=== PATIENT | female | born 1955 | race Caucasian/White ===

== ENCOUNTER 2017-05-09 20:48 | Observation (INO) | payer OTHER ==
[~2017-05-09] VITALS: Ht 157.5 cm; Wt 114.5 kg
[~2017-05-09 20:48] MED LIST: ALBU.083IS IH; ALBU90OI INH; ALBU90OI6 INH; ALPR.5; ALPR1 PO; AMOCLA875 PO; ASPI325 PO; AZIT250 PO; Abilify5 MG PO; Accuneb1.25 MG/3 INH; Bactrim 400-801 EACH PO; Bactrim Ds Tab1 EACH PO; Benadryl 50 mg50 MG PO; CEPH500 PO; CIPR500 PO; CONEST1.25; CYCL10 PO; Crutch1 EACH MISC; DIPATR PO; DULO30 PO; ERGO50000 PO; ESOM20; ESTR1; FAMO40 PO; FLUSAL1005 INH; Flexeril 10 mg10 MG PO; GLIP5 PO; HYDACE5 PO; HYDACE5325 PO; HYDMOR2; HYDR1TAB94 PO; IBUP800 PO; LISI5 PO; LORA2 PO; METF500 PO; METF500C PO; METO25ER PO; METO50 PO; METPRE4DP PO; MIRT15 PO; MIRT15ST MM; NICO21TP; NITR.3SL; NITR.4SL SL; Nitrostat0.4 MG SL; Norco 5-325 Ta1 EACH PO; Norco 7.5-3251 EACH PO; OMEP20ER; OMEP40CA12 PO; ONDA8 PO; OXYACE5T PO; PRAV20 PO; PRED20 PO; PROM25; PROM25 PO; Percocet 5-3251 EACH PO; Prednisone20 MG PO; RANI150; RANI150 PO; SERT100; SERT100 PO; SULTRIDS PO; TAMS.4ER PO; TRAZ100 PO; TRIA80TC TOP; VITAMIN D-32000 UNIT PO; ZOLP5 PO; Zofran Odt8 MG SL; Zofran8 MG PO; Zoloft PO; [UNRECOGNIZED DRUG - OTHER]
[2017-05-09 21:10] LABS: BASOPHILS ABSOLUTE AUTO 0.04 K/mm3 (0.00-0.23); BASOPHILS PERCENT AUTO 0 % (0-2); EOSINOPHILS ABSOLUTE AUTO 0.19 K/mm3 (0.00-0.68); EOSINOPHILS PERCENT AUTO 2 % (0-6); Hemoglobin 12.6 g/dL (11.5-16.0); IMMATURE GRAN ABSOLUTE AUTO 0.02 K/mm3 (0.00-0.10); IMMATURE GRAN PERCENT AUTO 0 % (0-1); LYMPHOCYTES ABSOLUTE AUTO 4.13 K/mm3 (0.84-5.20); LYMPHOCYTES PERCENT AUTO 41 % (21-46); MONOCYTES ABSOLUTE AUTO 0.71 K/mm3 (0.16-1.47); MONOCYTES PERCENT AUTO 7 % (4-13); Mean Corpuscular HGB 27.4 pg (26.0-34.0); Mean Corpuscular HGB Conc 33.2 g/dL (31.5-36.5); Mean Corpuscular Volume 83 fL (80-100); Mean Platelet Volume 11.7 fL (9.1-12.4); NEUTROPHILS PERCENT AUTO 49 % (41-73); Platelet Count 182 K/mm3 (150-400); RDW Coefficient Variation 13.3 % (11.7-14.2); RDW Standard Deviation 39.8 fL (35.1-46.3); White Blood Cell Count 9.99 K/mm3 (4.00-11.30)
[2017-05-09 21:32] LABS: Alanine Aminotransfer (ALT/SGP 23 U/L (12-78); Albumin, Blood 3.4 g/dL (3.4-5.0); Albumin/Globulin Ratio 1.1 (0.8-1.8); Alk Phos 98 U/L (50-136); Anion Gap 7 mmol/L (6-16); Aspartate Aminotrans (AST/SGOT 10 U/L (12-37); Bilirubin, Total 0.2 mg/dL (0.1-1.0); Blood Urea Nitrogen 10 mg/dL (8-24); Bun/Creatinine Ratio 15.4 (12.0-20.0); CO2, Blood 25 mmol/L (21-32); Calcium, Blood 8.5 mg/dL (8.5-10.1); Chloride, Blood 108 mmol/L (98-108); Creatinine, Blood 0.65 mg/dL (0.40-1.00); Globulin, Blood 3.2 g/dL (2.2-4.0); Glomerular Filtration Rate >60 (60-); Glucose, Blood 249 mg/dL (70-99); Potassium, Blood 4.1 mmol/L (3.5-5.5); Sodium, Blood 140 mmol/L (136-145); Total Protein, Blood 6.6 g/dL (6.4-8.2); Troponin I <0.015 ng/mL (0.000-0.040)
[2017-05-10] MEDS ORDERED: ARIP15 PO (00:26)
[2017-07-15] MEDS ORDERED: Fish Oil 10001000 MG PO (19:26)
[2017-07-15] MEDS ORDERED: WOMEN'S DAILY1 EAC1 PO (19:26)
[2017-12-27] MEDS ORDERED: Zofran Odt4 MG PO (23:42)
== END 2017-05-11 14:00 | disposition home or self-care (01) ==
LOC: ER 20:48 → PCU 20:49 → MEDS 20:49 → PCU 23:48
PROVIDERS: Emergency Medicine
DX: R07.9 Chest pain, unspecified (principal); I25.10 Atherosclerotic heart disease of native coronary artery without angina pectoris; J44.9 Chronic obstructive pulmonary disease, unspecified; E11.9 Type 2 diabetes mellitus without complications; I10 Essential (primary) hypertension; E66.01 Morbid (severe) obesity due to excess calories; I25.2 Old myocardial infarction; F41.9 Anxiety disorder, unspecified; F32.9 Major depressive disorder, single episode, unspecified; Z90.49 Acquired absence of other specified parts of digestive tract; F17.210 Nicotine dependence, cigarettes, uncomplicated; Z79.82 Long term (current) use of aspirin; Z79.84 Long term (current) use of oral hypoglycemic drugs; Z79.899 Other long term (current) drug therapy; Z98.1 Arthrodesis status; Z68.39 Body mass index [BMI] 39.0-39.9, adult
CPT/HCPCS: 36415; 71045; 78452; 80053; 82947; 83690; 84484; 85025; 93005; 93010; 93017; 94760; 96372; 96374; 96375; 96376; 97162; 97530; 99285; A9500; G0378; G8978; G8979; G8980; J0280; J0360; J0780; J1170; J1200; J1650; J2270; J2405; J2765; J2785; J7040

== ENCOUNTER 2017-08-17 07:45 | Day surgery (SDC) | payer OTHER ==
[~2017-08-17] VITALS: Ht 157.5 cm; Wt 114.8 kg
[~2017-08-17 07:45] MED LIST changes: +ARIP15 PO; +Fish Oil 10001000 MG; +WOMEN'S DAILY1 EAC1
== END 2017-08-17 12:00 | disposition home or self-care (01) ==
LOC: ORSCMMR 07:45 → ORD 09:00 → ORSCMMR 09:00
PROVIDERS: Internal Medicine Gastroenterology
PROC: 0DBN8ZX Excision of Sigmoid Colon, Via Natural or Artificial Opening Endoscopic, Diagnostic (ICD-10-PCS; principal; 2017-08-17 09:00)
PROC: 0DBL8ZX Excision of Transverse Colon, Via Natural or Artificial Opening Endoscopic, Diagnostic (ICD-10-PCS; principal; 2017-08-17 09:00)
PROC: 0DBK8ZX Excision of Ascending Colon, Via Natural or Artificial Opening Endoscopic, Diagnostic (ICD-10-PCS; principal; 2017-08-17 09:00)
DX: K62.5 Hemorrhage of anus and rectum (principal); D12.2 Benign neoplasm of ascending colon; K63.5 Polyp of colon; I10 Essential (primary) hypertension; E11.9 Type 2 diabetes mellitus without complications; F17.210 Nicotine dependence, cigarettes, uncomplicated; F32.9 Major depressive disorder, single episode, unspecified; E66.9 Obesity, unspecified; Z68.42 Body mass index [BMI] 45.0-49.9, adult; Z79.84 Long term (current) use of oral hypoglycemic drugs; Z79.82 Long term (current) use of aspirin; Z79.899 Other long term (current) drug therapy
CPT/HCPCS: 82947; 88305; J2250; J3010; J7030

== ENCOUNTER 2017-09-18 17:12 | Emergency (ER) | payer OTHER ==
[~2017-09-18] VITALS: Ht 160 cm; Wt 114.3 kg
[2017-09-18 17:53] LABS: BASOPHILS ABSOLUTE AUTO 0.05 K/mm3 (0.00-0.23); BASOPHILS PERCENT AUTO 0 % (0-2); EOSINOPHILS ABSOLUTE AUTO 0.13 K/mm3 (0.00-0.68); EOSINOPHILS PERCENT AUTO 1 % (0-6); Hematocrit 39.3 % (33.0-51.0); Hemoglobin 13.2 g/dL (11.5-16.0); IMMATURE GRAN ABSOLUTE AUTO 0.04 K/mm3 (0.00-0.10); IMMATURE GRAN PERCENT AUTO 0 % (0-1); LYMPHOCYTES ABSOLUTE AUTO 3.27 K/mm3 (0.84-5.20); LYMPHOCYTES PERCENT AUTO 29 % (21-46); MONOCYTES PERCENT AUTO 6 % (4-13); Mean Corpuscular HGB Conc 33.6 g/dL (31.5-36.5); Mean Corpuscular Volume 83 fL (80-100); Mean Platelet Volume 11.5 fL (9.1-12.4); NEUTROPHILS ABSOLUTE AUTO 7.28 K/mm3 (1.96-9.15); NEUTROPHILS PERCENT AUTO 64 % (41-73); Platelet Count 195 K/mm3 (150-400); RDW Coefficient Variation 13.7 % (11.7-14.2); RDW Standard Deviation 41.9 fL (35.1-46.3); Red Blood Cell Count 4.72 M/mm3 (3.80-5.20); White Blood Cell Count 11.47 K/mm3 (4.00-11.30)
[2017-09-18 18:11] LABS: Troponin I <0.015 ng/mL (0.000-0.040)
[2017-09-18 18:34] LABS: Anion Gap 10 mmol/L (6-16); Blood Urea Nitrogen 9 mg/dL (8-24); Bun/Creatinine Ratio 13.8 (12.0-20.0); CO2, Blood 25 mmol/L (21-32); Calcium, Blood 8.8 mg/dL (8.5-10.1); Chloride, Blood 106 mmol/L (98-108); Creatinine, Blood 0.65 mg/dL (0.40-1.00); Glomerular Filtration Rate >60 (60-); Glucose, Blood 169 mg/dL (70-99); Potassium, Blood 3.7 mmol/L (3.5-5.5); Sodium, Blood 141 mmol/L (136-145)
[2017-09-18] MEDS ORDERED: LORA2 PO (18:42)
== END 2017-09-18 18:46 | disposition home or self-care (01) ==
LOC: ER 17:12
PROVIDERS: Emergency Medicine
DX: R07.9 Chest pain, unspecified (principal); I25.10 Atherosclerotic heart disease of native coronary artery without angina pectoris; E11.9 Type 2 diabetes mellitus without complications; I10 Essential (primary) hypertension; F32.9 Major depressive disorder, single episode, unspecified; F41.9 Anxiety disorder, unspecified; Z79.899 Other long term (current) drug therapy; Z79.82 Long term (current) use of aspirin; Z79.84 Long term (current) use of oral hypoglycemic drugs
CPT/HCPCS: 36415; 71045; 80048; 84484; 85025; 93005; 93010; 96374; 96375; 99285-25; J2060; J2405

== ENCOUNTER 2020-05-09 19:25 | Emergency (ER) | payer OTHER ==
[~2020-05-09] VITALS: Ht 157.5 cm; Wt 113.4 kg
[~2020-05-09 19:25] MED LIST changes: -Fish Oil 10001000 MG; +Fish Oil 10001000 MG PO; -WOMEN'S DAILY1 EAC1; +WOMEN'S DAILY1 EAC1 PO; +Zofran Odt4 MG PO
[2020-05-09 20:47] LABS: BASOPHILS ABSOLUTE AUTO 0.04 K/mm3 (0.00-0.23); BASOPHILS PERCENT AUTO 0 % (0-2); EOSINOPHILS ABSOLUTE AUTO 0.14 K/mm3 (0.00-0.68); EOSINOPHILS PERCENT AUTO 1 % (0-6); Hematocrit 43.6 % (33.0-51.0); Hemoglobin 14.7 g/dL (11.5-16.0); IMMATURE GRAN ABSOLUTE AUTO 0.02 K/mm3 (0.00-0.10); IMMATURE GRAN PERCENT AUTO 0 % (0-1); LYMPHOCYTES ABSOLUTE AUTO 4.08 K/mm3 (0.84-5.20); LYMPHOCYTES PERCENT AUTO 38 % (21-46); MONOCYTES ABSOLUTE AUTO 0.64 K/mm3 (0.16-1.47); MONOCYTES PERCENT AUTO 6 % (4-13); Mean Corpuscular HGB 27.1 pg (26.0-34.0); Mean Corpuscular HGB Conc 33.7 g/dL (31.5-36.5); Mean Corpuscular Volume 80 fL (80-100); Mean Platelet Volume 10.5 fL (9.1-12.4); NEUTROPHILS ABSOLUTE AUTO 5.81 K/mm3 (1.96-9.15); NEUTROPHILS PERCENT AUTO 54 % (41-73); Platelet Count 216 K/mm3 (150-400); RDW Coefficient Variation 14.3 % (11.7-14.2); RDW Standard Deviation 41.2 fL (35.1-46.3); Red Blood Cell Count 5.43 M/mm3 (3.80-5.20); White Blood Cell Count 10.73 K/mm3 (4.00-11.30)
[2020-05-09 21:06] LABS: Alanine Aminotransfer (ALT/SGP 19 U/L (12-78); Albumin, Blood 3.5 g/dL (3.4-5.0); Albumin/Globulin Ratio 1.1 (0.8-1.8); Alk Phos 97 U/L (50-136); Anion Gap 5 mmol/L (6-16); Aspartate Aminotrans (AST/SGOT 13 U/L (12-37); Bilirubin, Total 0.5 mg/dL (0.1-1.0); Blood Urea Nitrogen 9 mg/dL (8-24); Bun/Creatinine Ratio 12.8 (12.0-20.0); CO2, Blood 30 mmol/L (21-32); Calcium, Blood 9.1 mg/dL (8.5-10.1); Chloride, Blood 106 mmol/L (98-108); Globulin, Blood 3.3 g/dL (2.2-4.0); Glomerular Filtration Rate >60 (60-); Glucose, Blood 191 mg/dL (70-99); Potassium, Blood 3.9 mmol/L (3.5-5.5); Sodium, Blood 141 mmol/L (136-145); Total Protein, Blood 6.8 g/dL (6.4-8.2)
[2020-05-09] MEDS ORDERED: ANORO ELLIPTA1 EACH (23:06)
[2020-05-09] MEDS ORDERED: BASAGLAR K100 UNIT/8 (23:06)
[2020-05-09] MEDS ORDERED: GABA300 (23:07)
[2020-05-09] MEDS ORDERED: PRAZ1 (23:07)
[2020-05-09] MEDS ORDERED: PRAV20 (23:07)
[2020-05-09] MEDS ORDERED: ALBU90OI (23:08)
[2020-05-09] MEDS ORDERED: ONDA4ODT (23:08)
[2020-05-09] MEDS ORDERED: ALPR1 (23:09)
[2020-05-10 00:19] LABS: Source, Urine Clean Catch
[2020-05-10 00:24] LABS: Bilirubin, Urine Neg (Neg); Blood, Urine 1+ (Neg); Glucose Qualitative, Urine Neg (Neg); Ketones, Urine 1+ (Neg); Leukocyte Esterase, Urine 1+ (Neg); Nitrite, Urine Neg (Neg); Protein, Urine 1+ (Neg); Urobilinogen, Urine 1+ (Normal)
[2020-05-10 00:27] LABS: Color, Urine Yellow (P-Yellow)
[2020-05-10 00:41] LABS: Appearance, Urine Hazy (Clear); Bacteria Many /hpf; Mucus Light (0-Heavy); Red Blood Cells, Urine 0-2 /hpf (0-2); Squamous Epithelial Cells Many /hpf (Few)
== END 2020-05-10 00:56 | disposition left against medical advice (07) ==
LOC: ER 19:25
PROVIDERS: Emergency Medicine
DX: R10.9 Unspecified abdominal pain (principal); I10 Essential (primary) hypertension; I25.2 Old myocardial infarction; E11.9 Type 2 diabetes mellitus without complications; I25.10 Atherosclerotic heart disease of native coronary artery without angina pectoris; E78.5 Hyperlipidemia, unspecified; Z91.09 Other allergy status, other than to drugs and biological substances; Z88.8 Allergy status to other drugs, medicaments and biological substances; Z79.4 Long term (current) use of insulin; Z79.899 Other long term (current) drug therapy; Z87.442 Personal history of urinary calculi; Z87.891 Personal history of nicotine dependence
CPT/HCPCS: 36415; 80053; 81001; 83690; 85025; 87086; 93005; 93010; 99284-25

== ENCOUNTER 2020-08-24 21:15 | Emergency (ER) | payer OTHER ==
[~2020-08-24] VITALS: Ht 157.5 cm; Wt 113.4 kg
[~2020-08-24 21:15] MED LIST changes: +ALBU90OI; +ALPR1; +ANORO ELLIPTA1 EACH; +BASAGLAR K100 UNIT/8; +GABA300; +ONDA4ODT; +PRAV20; +PRAZ1
[2020-08-24 21:41] LABS: BASOPHILS ABSOLUTE AUTO 0.04 K/mm3 (0.00-0.23); BASOPHILS PERCENT AUTO 0 % (0-2); EOSINOPHILS ABSOLUTE AUTO 0.11 K/mm3 (0.00-0.68); EOSINOPHILS PERCENT AUTO 1 % (0-6); Hematocrit 44.3 % (33.0-51.0); Hemoglobin 14.6 g/dL (11.5-16.0); IMMATURE GRAN ABSOLUTE AUTO 0.03 K/mm3 (0.00-0.10); IMMATURE GRAN PERCENT AUTO 0 % (0-1); LYMPHOCYTES ABSOLUTE AUTO 3.21 K/mm3 (0.84-5.20); LYMPHOCYTES PERCENT AUTO 30 % (21-46); MONOCYTES ABSOLUTE AUTO 0.68 K/mm3 (0.16-1.47); MONOCYTES PERCENT AUTO 6 % (4-13); Mean Corpuscular HGB 26.2 pg (26.0-34.0); Mean Corpuscular Volume 79 fL (80-100); Mean Platelet Volume 11.4 fL (9.1-12.4); NEUTROPHILS ABSOLUTE AUTO 6.65 K/mm3 (1.96-9.15); NEUTROPHILS PERCENT AUTO 62 % (41-73); Platelet Count 217 K/mm3 (150-400); RDW Coefficient Variation 14.6 % (11.7-14.2); RDW Standard Deviation 41.9 fL (35.1-46.3); Red Blood Cell Count 5.58 M/mm3 (3.80-5.20); White Blood Cell Count 10.72 K/mm3 (4.00-11.30)
[2020-08-24 22:02] LABS: Alanine Aminotransfer (ALT/SGP 20 U/L (12-78); Albumin, Blood 3.8 g/dL (3.4-5.0); Albumin/Globulin Ratio 1.1 (0.8-1.8); Alk Phos 92 U/L (50-136); Anion Gap 6 mmol/L (6-16); Aspartate Aminotrans (AST/SGOT 12 U/L (12-37); Bilirubin, Total 0.3 mg/dL (0.1-1.0); Blood Urea Nitrogen 8 mg/dL (8-24); Bun/Creatinine Ratio 13.3 (12.0-20.0); CO2, Blood 26 mmol/L (21-32); Calcium, Blood 8.8 mg/dL (8.5-10.1); Chloride, Blood 108 mmol/L (98-108); Globulin, Blood 3.4 g/dL (2.2-4.0); Glomerular Filtration Rate >60 (60-); Glucose, Blood 205 mg/dL (70-99); Potassium, Blood 3.9 mmol/L (3.5-5.5); Sodium, Blood 140 mmol/L (136-145); Total Protein, Blood 7.2 g/dL (6.4-8.2); Troponin I <0.015 ng/mL (0.000-0.040)
== END 2020-08-25 00:35 | disposition home or self-care (01) ==
LOC: ER 21:15
PROVIDERS: Physician Assistant
DX: R07.9 Chest pain, unspecified (principal); E78.5 Hyperlipidemia, unspecified; I10 Essential (primary) hypertension; I25.2 Old myocardial infarction; E11.40 Type 2 diabetes mellitus with diabetic neuropathy, unspecified; I25.10 Atherosclerotic heart disease of native coronary artery without angina pectoris; F17.210 Nicotine dependence, cigarettes, uncomplicated; Z79.4 Long term (current) use of insulin; Z91.09 Other allergy status, other than to drugs and biological substances; Z88.8 Allergy status to other drugs, medicaments and biological substances; Z79.899 Other long term (current) drug therapy
CPT/HCPCS: 36415; 71046; 80053; 83880; 84484; 85025; 93005; 93010; 99285-25; A9270

== ENCOUNTER 2020-12-10 20:31 | Inpatient (IN) | payer OTHER ==
[~2020-12-10] VITALS: Ht 157.5 cm; Wt 115.7 kg
[2020-12-10 20:51] LABS: BASOPHILS ABSOLUTE AUTO 0.04 K/mm3 (0.00-0.23); BASOPHILS PERCENT AUTO 1 % (0-2); EOSINOPHILS ABSOLUTE AUTO 0.12 K/mm3 (0.00-0.68); EOSINOPHILS PERCENT AUTO 1 % (0-6); Hematocrit 42.4 % (33.0-51.0); Hemoglobin 13.9 g/dL (11.5-16.0); IMMATURE GRAN ABSOLUTE AUTO 0.01 K/mm3 (0.00-0.10); IMMATURE GRAN PERCENT AUTO 0 % (0-1); LYMPHOCYTES ABSOLUTE AUTO 3.29 K/mm3 (0.84-5.20); LYMPHOCYTES PERCENT AUTO 38 % (21-46); MONOCYTES ABSOLUTE AUTO 0.53 K/mm3 (0.16-1.47); MONOCYTES PERCENT AUTO 6 % (4-13); Mean Corpuscular HGB 26.5 pg (26.0-34.0); Mean Corpuscular HGB Conc 32.8 g/dL (31.5-36.5); Mean Corpuscular Volume 81 fL (80-100); Mean Platelet Volume 11.3 fL (9.1-12.4); NEUTROPHILS ABSOLUTE AUTO 4.72 K/mm3 (1.96-9.15); NEUTROPHILS PERCENT AUTO 54 % (41-73); Platelet Count 205 K/mm3 (150-400); RDW Coefficient Variation 14.1 % (11.7-14.2); RDW Standard Deviation 41.3 fL (35.1-46.3); Red Blood Cell Count 5.25 M/mm3 (3.80-5.20); White Blood Cell Count 8.71 K/mm3 (4.00-11.30)
[2020-12-10 21:13] LABS: Alanine Aminotransfer (ALT/SGP 19 U/L (12-78); Albumin, Blood 3.5 g/dL (3.4-5.0); Alk Phos 101 U/L (50-136); Anion Gap 3 mmol/L (6-16); Aspartate Aminotrans (AST/SGOT 10 U/L (12-37); Bilirubin, Total 0.3 mg/dL (0.1-1.0); Blood Urea Nitrogen 7 mg/dL (8-24); Bun/Creatinine Ratio 9.1 (12.0-20.0); CO2, Blood 30 mmol/L (21-32); Calcium, Blood 8.7 mg/dL (8.5-10.1); Chloride, Blood 108 mmol/L (98-108); Creatinine, Blood 0.77 mg/dL (0.40-1.00); Globulin, Blood 3.6 g/dL (2.2-4.0); Glomerular Filtration Rate >60 (60-); Glucose, Blood 170 mg/dL (70-99); Potassium, Blood 4.1 mmol/L (3.5-5.5); Sodium, Blood 141 mmol/L (136-145); Total Protein, Blood 7.1 g/dL (6.4-8.2); Troponin I <0.015 ng/mL (0.000-0.040)
[2020-12-10 21:44] LABS: International Normalized Ratio 1.16; Prothrombin Time Results 12.1 Sec (9.7-11.5)
[2020-12-11 03:01] LABS: BASOPHILS ABSOLUTE AUTO 0.05 K/mm3 (0.00-0.23); BASOPHILS PERCENT AUTO 1 % (0-2); EOSINOPHILS ABSOLUTE AUTO 0.21 K/mm3 (0.00-0.68); EOSINOPHILS PERCENT AUTO 2 % (0-6); Hematocrit 41.2 % (33.0-51.0); Hemoglobin 13.5 g/dL (11.5-16.0); IMMATURE GRAN ABSOLUTE AUTO 0.03 K/mm3 (0.00-0.10); IMMATURE GRAN PERCENT AUTO 0 % (0-1); LYMPHOCYTES ABSOLUTE AUTO 4.46 K/mm3 (0.84-5.20); LYMPHOCYTES PERCENT AUTO 45 % (21-46); MONOCYTES ABSOLUTE AUTO 0.76 K/mm3 (0.16-1.47); MONOCYTES PERCENT AUTO 8 % (4-13); Mean Corpuscular HGB 26.6 pg (26.0-34.0); Mean Corpuscular HGB Conc 32.8 g/dL (31.5-36.5); Mean Corpuscular Volume 81 fL (80-100); Mean Platelet Volume 11.4 fL (9.1-12.4); NEUTROPHILS ABSOLUTE AUTO 4.46 K/mm3 (1.96-9.15); NEUTROPHILS PERCENT AUTO 45 % (41-73); Platelet Count 199 K/mm3 (150-400); RDW Coefficient Variation 14.4 % (11.7-14.2); RDW Standard Deviation 42.6 fL (35.1-46.3); Red Blood Cell Count 5.07 M/mm3 (3.80-5.20); White Blood Cell Count 9.97 K/mm3 (4.00-11.30)
[2020-12-11 03:21] LABS: CHOL/HDL RATIO 4.4; Cholesterol 173 mg/dL (50-200); HDL Cholesterol 39 mg/dL (>39); LDL/HDL RATIO 2.1; Low Density Lipoprotein Chol 82 mg/dL (0-110); Triglycerides 258 mg/dL (30-160); Very Low Density Lipoprot Chol 51 mg/dL (6-32)
[2020-12-11 03:21] LABS: Alanine Aminotransfer (ALT/SGP 18 U/L (12-78); Albumin, Blood 3.3 g/dL (3.4-5.0); Alk Phos 93 U/L (50-136); Anion Gap 5 mmol/L (6-16); Aspartate Aminotrans (AST/SGOT 10 U/L (12-37); Bilirubin, Total 0.3 mg/dL (0.1-1.0); Blood Urea Nitrogen 10 mg/dL (8-24); Bun/Creatinine Ratio 13.9 (12.0-20.0); CO2, Blood 27 mmol/L (21-32); Calcium, Blood 8.8 mg/dL (8.5-10.1); Chloride, Blood 109 mmol/L (98-108); Creatinine, Blood 0.72 mg/dL (0.40-1.00); Globulin, Blood 3.2 g/dL (2.2-4.0); Glomerular Filtration Rate >60 (60-); Glucose, Blood 101 mg/dL (70-99); Potassium, Blood 3.9 mmol/L (3.5-5.5); Sodium, Blood 141 mmol/L (136-145); Total Protein, Blood 6.5 g/dL (6.4-8.2)
[2020-12-11] MEDS ORDERED: INSULANPEN SC (03:30)
--- NOTE | 2020-12-11 06:17 | NUR ---
ADMISSION NOTE / MERGERS AND ACQUISITIONS BANKER SUMMARY PATIENT WAS TO THE FLOOR FROM THE ED. SHE IS AOX4. SHE WAS ASSESSED AND ADMISSION ASSESSMENT DOCUMENTED. SHE DOES NOT HAVE ANY PRESSURE INJURIES. HER VS WAS CHECKED AND CHARTED. SHE STATED THAT SHE WAS IN PAIN, ORDER GOTTEN FROM [facility] [employer] [facility] AND WAS GIVEN HER PAIN MED. SHE WAS MADE COMFORTABLE. NO OTHER COMPLAINT LODGED.
--- NOTE | 2020-12-11 17:10 | NUR ---
Shift Summary AOx3, pleasant and cooperative with care. Up with 1-2 assist to chair and bsc, mostly continent of stool and bladder. Appetite is good. C/O pain to L shoulder unrelievd by pain medication per patient state even at rest. Patient did not tolerate MRI despite medicated for anxiety. Per report from PACO Robles, orders for new nebulizer and bsc placed to [facility]. If patient d/c over the weekend, primary RN to call [facility] and notify of d/c so equipments can be delivered to home for patient's use.
[2020-12-11 17:16] LABS: Source, Urine Clean Catch
[2020-12-11 17:24] LABS: Appearance, Urine Clear (Clear); Bilirubin, Urine Neg (Neg); Blood, Urine 1+ (Neg); Glucose Qualitative, Urine Neg (Neg); Ketones, Urine Neg (Neg); Leukocyte Esterase, Urine Neg (Neg); Nitrite, Urine Neg (Neg); Protein, Urine Neg (Neg); Urobilinogen, Urine NORM (Normal)
[2020-12-11 17:25] LABS: Color, Urine Pale Yellow (P-Yellow)
[2020-12-11 17:35] LABS: Red Blood Cells, Urine 0-2 /hpf (0-2); Squamous Epithelial Cells Mod /hpf (Few); White Blood Cells, Urine Rare /hpf (0-5)
[2020-12-11 17:36] LABS: Bacteria Mod /hpf
--- NOTE | 2020-12-11 18:10 | NUR ---
HYPERTENSION AND PAIN NOTIFIED DR. PECK OF SBP 180'S DESPITE MEDICATING WITH HYDRALIZINE. T.O. RECEIVED TO GIVE ONE TIME DOSE OF 10 MG IV HYDRALIZINE. PATIENT ALSO C/O CONTINUED PAIN, NO NEW MED ORDERS. WILL GIVE HEATING PACK TO SEE IF ADEQUATELY CONTROLLED.
--- NOTE | 2020-12-12 05:47 | NUR ---
SHIFT SUMMARY PATIENT ALERT AND ORIENTED. MEDICATED PER EMAR FOR SLEEP. NO COMPLAINTS OF SHORTNESS OF BREATH. NO ACUTE ISSUES NOTED. IV PATENT AND FLUSHED. BED IN LOWEST POSITION WITH WHEELS LOCKED AND ALARM ON. CALL LIGHT WITHIN REACH. REPORT GIVEN TO ONCKRISTA LAURENT.
--- NOTE | 2020-12-13 05:59 | NUR ---
SHIFT SUMMARY PATIENT ALERT AND ORIENTED. MEDICATED PER EMAR FOR PAIN AND ANXIETY. NO ACUTE ISSUES NOTED OVERNIGHT. CALL LIGHT WITHIN REACH. REPORT GIVEN TO ONCOMING RN.
[2020-12-13] MEDS ORDERED: PRAZ1 PO (09:46)
[2020-12-13] MEDS ORDERED: Norco 7.5-3251 EACH PO (09:48)
[2020-12-13] MEDS ORDERED: NOVOLOG100 UNIT/2 SC (09:51)
[2020-12-13] MEDS ORDERED: ASPI81CH PO (12:16)
[2020-12-13] MEDS ORDERED: CLOP75 PO (12:17)
[2020-12-13] MEDS ORDERED: PANT40 PO (12:18)
--- NOTE | 2020-12-13 13:33 | NUR ---
DISCHARGED HOME. TEACHBACK METHOD UTILIZED. ALL QUESTIONS ANSWERED. PATIENT AND PARTNER VERBALIZED UNDERSTANDING OF ALL DISCHARGE INSTRUCTIONS AND ALL PERSONAL BELONGINGS WERE IN THEIR POSSESSION AT TIME OF DISCHARGE.
== END 2020-12-13 12:45 | disposition home health service (06) | DRG 65 ==
LOC: ER 20:31 → MEDS 12-11 00:39
PROVIDERS: Family Medicine; Student in an Organized Health Care Education/Training Program; ADMIT Internal Medicine
DX: I63.9 Cerebral infarction, unspecified (principal); G81.94 Hemiplegia, unspecified affecting left nondominant side; Z68.41 Body mass index [BMI] 40.0-44.9, adult; F44.4 Conversion disorder with motor symptom or deficit; Z76.5 Malingerer [conscious simulation]; F17.210 Nicotine dependence, cigarettes, uncomplicated; R29.705 NIHSS score 5; R07.89 Other chest pain; M54.12 Radiculopathy, cervical region; E11.65 Type 2 diabetes mellitus with hyperglycemia; M79.602 Pain in left arm; J44.9 Chronic obstructive pulmonary disease, unspecified; I10 Essential (primary) hypertension; Z23 Encounter for immunization; E78.5 Hyperlipidemia, unspecified; E11.40 Type 2 diabetes mellitus with diabetic neuropathy, unspecified; I25.10 Atherosclerotic heart disease of native coronary artery without angina pectoris; F32.A Depression, unspecified; F41.9 Anxiety disorder, unspecified; E66.01 Morbid (severe) obesity due to excess calories; G89.29 Other chronic pain; I25.2 Old myocardial infarction; Z88.8 Allergy status to other drugs, medicaments and biological substances; Z79.4 Long term (current) use of insulin; Z79.899 Other long term (current) drug therapy; Z85.51 Personal history of malignant neoplasm of bladder
CPT/HCPCS: 36415; 70450; 70496; 70498; 71275; 80053; 80061; 81001; 82947; 83036; 83880; 84484; 85025; 85610; 85730; 87086; 90686; 92610; 93005; 93010; 93306; 94640; 94762; 96374; 97110; 97116; 97162; 97167; 97530; 97535; 99285-25; A9270; J0360; J1650; J2060; J2270; Q9967

== ENCOUNTER 2020-12-21 13:21 | Emergency (ER) | payer OTHER ==
[~2020-12-21] VITALS: Ht 165.1 cm; Wt 81.7 kg
[~2020-12-21 13:21] MED LIST changes: -ALBU90OI; +ASPI81CH PO; -GABA300; +PRAZ1 PO
[2020-12-21 13:59] LABS: BASOPHILS ABSOLUTE AUTO 0.05 K/mm3 (0.00-0.23); BASOPHILS PERCENT AUTO 1 % (0-2); EOSINOPHILS ABSOLUTE AUTO 0.17 K/mm3 (0.00-0.68); EOSINOPHILS PERCENT AUTO 2 % (0-6); Hematocrit 42.2 % (33.0-51.0); Hemoglobin 13.9 g/dL (11.5-16.0); IMMATURE GRAN ABSOLUTE AUTO 0.02 K/mm3 (0.00-0.10); IMMATURE GRAN PERCENT AUTO 0 % (0-1); LYMPHOCYTES ABSOLUTE AUTO 2.63 K/mm3 (0.84-5.20); LYMPHOCYTES PERCENT AUTO 32 % (21-46); MONOCYTES ABSOLUTE AUTO 0.48 K/mm3 (0.16-1.47); MONOCYTES PERCENT AUTO 6 % (4-13); Mean Corpuscular HGB Conc 32.9 g/dL (31.5-36.5); Mean Corpuscular Volume 82 fL (80-100); Mean Platelet Volume 11.9 fL (9.1-12.4); NEUTROPHILS PERCENT AUTO 60 % (41-73); Platelet Count 189 K/mm3 (150-400); RDW Coefficient Variation 14.2 % (11.7-14.2); RDW Standard Deviation 42.2 fL (35.1-46.3); Red Blood Cell Count 5.15 M/mm3 (3.80-5.20); White Blood Cell Count 8.35 K/mm3 (4.00-11.30)
[2020-12-21 14:25] LABS: Alanine Aminotransfer (ALT/SGP 15 U/L (12-78); Albumin, Blood 3.2 g/dL (3.4-5.0); Albumin/Globulin Ratio 0.9 (0.8-1.8); Alk Phos 94 U/L (50-136); Anion Gap 4 mmol/L (6-16); Aspartate Aminotrans (AST/SGOT 14 U/L (12-37); Bilirubin, Total 0.3 mg/dL (0.1-1.0); Blood Urea Nitrogen 8 mg/dL (8-24); Bun/Creatinine Ratio 12.2 (12.0-20.0); CO2, Blood 28 mmol/L (21-32); Calcium, Blood 8.9 mg/dL (8.5-10.1); Chloride, Blood 108 mmol/L (98-108); Creatinine, Blood 0.66 mg/dL (0.40-1.00); Globulin, Blood 3.7 g/dL (2.2-4.0); Glomerular Filtration Rate >60 (60-); Glucose, Blood 304 mg/dL (70-99); Potassium, Blood 3.9 mmol/L (3.5-5.5); Sodium, Blood 140 mmol/L (136-145); Total Protein, Blood 6.9 g/dL (6.4-8.2); Troponin I <0.015 ng/mL (0.000-0.040)
[2020-12-21] MEDS ORDERED: GABA300 PO (15:38)
[2020-12-21] MEDS ORDERED: NEURONTIN300 MG PO (15:38)
[2020-12-21] MEDS ORDERED: CLOP75 PO (15:39)
[2020-12-21] MEDS ORDERED: PANT40 PO (15:40)
[2020-12-21 16:11] LABS: Influenza A, PCR NEGATIVE (NEGATIVE); Influenza B, PCR NEGATIVE (NEGATIVE); Resp Syncytial Virus, PCR NEGATIVE (NEGATIVE); SARS-Cov-2 (COVID-19) PCR, MMC NEGATIVE (NEGATIVE)
[2020-12-21] MEDS ORDERED: PRAV20 PO (16:22)
[2020-12-21] MEDS ORDERED: INSULANPEN SC (16:23)
[2020-12-21] MEDS ORDERED: METO100 PO (16:23)
[2020-12-21] MEDS ORDERED: NOVOLOG100 UNIT/2 SC (16:24)
[2020-12-21] MEDS ORDERED: ALBU90OI INH (16:25)
[2020-12-21] MEDS ORDERED: PRED20 PO (16:27)
[2020-12-21] MEDS ORDERED: AMOCLA875 PO (16:27)
== END 2020-12-21 16:53 | disposition home or self-care (01) ==
LOC: ER 13:21
PROVIDERS: Physician Assistant
DX: J44.1 Chronic obstructive pulmonary disease with (acute) exacerbation (principal); Z20.822 Contact with and (suspected) exposure to COVID-19; I10 Essential (primary) hypertension; I25.2 Old myocardial infarction; E78.5 Hyperlipidemia, unspecified; E11.40 Type 2 diabetes mellitus with diabetic neuropathy, unspecified; I25.10 Atherosclerotic heart disease of native coronary artery without angina pectoris; F17.210 Nicotine dependence, cigarettes, uncomplicated; Z91.048 Other nonmedicinal substance allergy status; Z88.8 Allergy status to other drugs, medicaments and biological substances; Z79.4 Long term (current) use of insulin; Z79.899 Other long term (current) drug therapy; Z79.82 Long term (current) use of aspirin
CPT/HCPCS: 0241U; 36415; 71046; 80053; 83880; 84484; 85025; 93005; 93010; 96374; 99285-25; A9270; J2930

== ENCOUNTER 2021-02-25 19:36 | Emergency (ER) | payer OTHER ==
[~2021-02-25] VITALS: Ht 157.5 cm; Wt 108.9 kg
[~2021-02-25 19:36] MED LIST changes: +CLOP75 PO; +GABA300 PO; +INSULANPEN SC; +METO100 PO; +NEURONTIN300 MG PO; +NOVOLOG100 UNIT/2 SC; +PANT40 PO
[2021-02-25 20:33] LABS: BASOPHILS ABSOLUTE AUTO 0.03 K/mm3 (0.00-0.23); BASOPHILS PERCENT AUTO 0 % (0-2); EOSINOPHILS ABSOLUTE AUTO 0.19 K/mm3 (0.00-0.68); EOSINOPHILS PERCENT AUTO 2 % (0-6); Hematocrit 42.2 % (33.0-51.0); IMMATURE GRAN ABSOLUTE AUTO 0.01 K/mm3 (0.00-0.10); IMMATURE GRAN PERCENT AUTO 0 % (0-1); LYMPHOCYTES ABSOLUTE AUTO 3.36 K/mm3 (0.84-5.20); LYMPHOCYTES PERCENT AUTO 43 % (21-46); MONOCYTES ABSOLUTE AUTO 0.49 K/mm3 (0.16-1.47); MONOCYTES PERCENT AUTO 6 % (4-13); Mean Corpuscular HGB 26.6 pg (26.0-34.0); Mean Corpuscular HGB Conc 33.2 g/dL (31.5-36.5); Mean Corpuscular Volume 80 fL (80-100); Mean Platelet Volume 11.1 fL (9.1-12.4); NEUTROPHILS ABSOLUTE AUTO 3.71 K/mm3 (1.96-9.15); NEUTROPHILS PERCENT AUTO 48 % (41-73); Platelet Count 205 K/mm3 (150-400); RDW Coefficient Variation 14.4 % (11.7-14.2); Red Blood Cell Count 5.26 M/mm3 (3.80-5.20); White Blood Cell Count 7.79 K/mm3 (4.00-11.30)
[2021-02-25 21:16] LABS: Alanine Aminotransfer (ALT/SGP 22 U/L (12-78); Albumin, Blood 3.5 g/dL (3.4-5.0); Albumin/Globulin Ratio 1.1 (0.8-1.8); Alk Phos 97 U/L (50-136); Anion Gap 6 mmol/L (6-16); Aspartate Aminotrans (AST/SGOT 15 U/L (12-37); Bilirubin, Total 0.3 mg/dL (0.1-1.0); Blood Urea Nitrogen 15 mg/dL (8-24); Bun/Creatinine Ratio 17.5 (12.0-20.0); CO2, Blood 26 mmol/L (21-32); Calcium, Blood 8.5 mg/dL (8.5-10.1); Chloride, Blood 109 mmol/L (98-108); Creatinine, Blood 0.86 mg/dL (0.40-1.00); Globulin, Blood 3.2 g/dL (2.2-4.0); Glomerular Filtration Rate >60 (60-); Glucose, Blood 180 mg/dL (70-99); Potassium, Blood 4.2 mmol/L (3.5-5.5); Sodium, Blood 141 mmol/L (136-145); Total Protein, Blood 6.7 g/dL (6.4-8.2); Troponin I <0.015 ng/mL (0.000-0.040)
[2021-02-25] MEDS ORDERED: Aspir 8181 MG PO (22:42)
[2021-02-25] MEDS ORDERED: ALPR1 PO (22:43)
[2021-02-26 00:47] LABS: Source, Urine Clean Catch
[2021-02-26 01:22] LABS: Appearance, Urine Clear (Clear); Bilirubin, Urine Neg (Neg); Blood, Urine 1+ (Neg); Color, Urine Yellow (P-Yellow); Glucose Qualitative, Urine Neg (Neg); Ketones, Urine Neg (Neg); Leukocyte Esterase, Urine 2+ (Neg); Nitrite, Urine Neg (Neg); Protein, Urine 1+ (Neg); Specific Gravity, Urine 1.015 (1.003-1.022); Urobilinogen, Urine 1+ (Normal); pH, Urine 6.5 (5.0-8.0)
[2021-02-26 01:36] LABS: Bacteria Mod /hpf; Mucus Light (0-Heavy); Red Blood Cells, Urine 0-2 /hpf (0-2); Squamous Epithelial Cells Mod /hpf (Few)
== END 2021-02-26 02:51 | disposition home or self-care (01) ==
LOC: ER 19:36
PROVIDERS: Physician Assistant
DX: R20.2 Paresthesia of skin (principal); I10 Essential (primary) hypertension; I25.2 Old myocardial infarction; E78.5 Hyperlipidemia, unspecified; E11.40 Type 2 diabetes mellitus with diabetic neuropathy, unspecified; I25.10 Atherosclerotic heart disease of native coronary artery without angina pectoris; F17.210 Nicotine dependence, cigarettes, uncomplicated; Z91.048 Other nonmedicinal substance allergy status; Z88.8 Allergy status to other drugs, medicaments and biological substances; Z79.4 Long term (current) use of insulin; Z79.899 Other long term (current) drug therapy; Z79.82 Long term (current) use of aspirin
CPT/HCPCS: 36415; 70450; 80053; 81001; 84484; 85025; 87086; 93005; 93010; 96374; 99284-25; A9270; J1885

== ENCOUNTER 2021-02-27 18:39 | Emergency (ER) | payer OTHER ==
[~2021-02-27] VITALS: Ht 165.1 cm; Wt 108.9 kg
[~2021-02-27 18:39] MED LIST changes: +Aspir 8181 MG PO
[2021-02-27 19:27] LABS: BASOPHILS ABSOLUTE AUTO 0.05 K/mm3 (0.00-0.23); BASOPHILS PERCENT AUTO 1 % (0-2); EOSINOPHILS ABSOLUTE AUTO 0.12 K/mm3 (0.00-0.68); EOSINOPHILS PERCENT AUTO 1 % (0-6); Hematocrit 41.7 % (33.0-51.0); Hemoglobin 13.6 g/dL (11.5-16.0); IMMATURE GRAN ABSOLUTE AUTO 0.03 K/mm3 (0.00-0.10); IMMATURE GRAN PERCENT AUTO 0 % (0-1); LYMPHOCYTES ABSOLUTE AUTO 3.41 K/mm3 (0.84-5.20); LYMPHOCYTES PERCENT AUTO 39 % (21-46); MONOCYTES ABSOLUTE AUTO 0.58 K/mm3 (0.16-1.47); MONOCYTES PERCENT AUTO 7 % (4-13); Mean Corpuscular HGB 26.3 pg (26.0-34.0); Mean Corpuscular HGB Conc 32.6 g/dL (31.5-36.5); Mean Corpuscular Volume 81 fL (80-100); Mean Platelet Volume 10.7 fL (9.1-12.4); NEUTROPHILS ABSOLUTE AUTO 4.55 K/mm3 (1.96-9.15); NEUTROPHILS PERCENT AUTO 52 % (41-73); Platelet Count 185 K/mm3 (150-400); RDW Coefficient Variation 14.2 % (11.7-14.2); RDW Standard Deviation 41.9 fL (35.1-46.3); Red Blood Cell Count 5.17 M/mm3 (3.80-5.20); White Blood Cell Count 8.74 K/mm3 (4.00-11.30)
[2021-02-27 20:23] LABS: Alanine Aminotransfer (ALT/SGP 24 U/L (12-78); Albumin, Blood 3.6 g/dL (3.4-5.0); Albumin/Globulin Ratio 1.2 (0.8-1.8); Alk Phos 81 U/L (50-136); Anion Gap 3 mmol/L (6-16); Aspartate Aminotrans (AST/SGOT 18 U/L (12-37); Bilirubin, Total 0.3 mg/dL (0.1-1.0); Blood Urea Nitrogen 12 mg/dL (8-24); Bun/Creatinine Ratio 17.4 (12.0-20.0); CO2, Blood 29 mmol/L (21-32); Calcium, Blood 9.7 mg/dL (8.5-10.1); Chloride, Blood 109 mmol/L (98-108); Creatinine, Blood 0.69 mg/dL (0.40-1.00); Globulin, Blood 2.9 g/dL (2.2-4.0); Glomerular Filtration Rate >60 (60-); Glucose, Blood 134 mg/dL (70-99); Potassium, Blood 4.4 mmol/L (3.5-5.5); Sodium, Blood 141 mmol/L (136-145); Total Protein, Blood 6.5 g/dL (6.4-8.2); Troponin I <0.015 ng/mL (0.000-0.040)
== END 2021-02-27 22:40 | disposition home or self-care (01) ==
LOC: ER 18:39
PROVIDERS: Physician Assistant
DX: R06.00 Dyspnea, unspecified (principal); I10 Essential (primary) hypertension; E11.9 Type 2 diabetes mellitus without complications; I25.10 Atherosclerotic heart disease of native coronary artery without angina pectoris; E78.5 Hyperlipidemia, unspecified; F17.210 Nicotine dependence, cigarettes, uncomplicated; Z88.9 Allergy status to unspecified drugs, medicaments and biological substances; Z79.82 Long term (current) use of aspirin; Z79.4 Long term (current) use of insulin; Z79.899 Other long term (current) drug therapy; Z91.048 Other nonmedicinal substance allergy status; Z85.51 Personal history of malignant neoplasm of bladder
CPT/HCPCS: 36415; 71046; 71260; 80053; 84484; 85025; 93005; 93010; 99285-25; Q9967

== ENCOUNTER 2021-05-31 20:35 | Observation (INO) | payer OTHER ==
[~2021-05-31] VITALS: Ht 157.5 cm; Wt 115.3 kg
[2021-05-31 20:58] LABS: BASOPHILS ABSOLUTE AUTO 0.03 K/mm3 (0.00-0.23); BASOPHILS PERCENT AUTO 0 % (0-2); EOSINOPHILS ABSOLUTE AUTO 0.11 K/mm3 (0.00-0.68); EOSINOPHILS PERCENT AUTO 1 % (0-6); Hematocrit 41.1 % (33.0-51.0); Hemoglobin 13.5 g/dL (11.5-16.0); IMMATURE GRAN ABSOLUTE AUTO 0.03 K/mm3 (0.00-0.10); IMMATURE GRAN PERCENT AUTO 0 % (0-1); LYMPHOCYTES ABSOLUTE AUTO 3.21 K/mm3 (0.84-5.20); LYMPHOCYTES PERCENT AUTO 31 % (21-46); MONOCYTES ABSOLUTE AUTO 0.77 K/mm3 (0.16-1.47); MONOCYTES PERCENT AUTO 8 % (4-13); Mean Corpuscular HGB Conc 32.8 g/dL (31.5-36.5); Mean Corpuscular Volume 79 fL (80-100); Mean Platelet Volume 10.8 fL (9.1-12.4); NEUTROPHILS ABSOLUTE AUTO 6.09 K/mm3 (1.96-9.15); NEUTROPHILS PERCENT AUTO 60 % (41-73); Platelet Count 186 K/mm3 (150-400); RDW Coefficient Variation 14.9 % (11.7-14.2); RDW Standard Deviation 42.6 fL (35.1-46.3); Red Blood Cell Count 5.19 M/mm3 (3.80-5.20); White Blood Cell Count 10.24 K/mm3 (4.00-11.30)
[2021-05-31 21:20] LABS: Alanine Aminotransfer (ALT/SGP 16 U/L (12-78); Albumin, Blood 3.7 g/dL (3.4-5.0); Albumin/Globulin Ratio 1.1 (0.8-1.8); Alk Phos 74 U/L (50-136); Anion Gap 4 mmol/L (6-16); Aspartate Aminotrans (AST/SGOT 11 U/L (12-37); Bilirubin, Total 0.3 mg/dL (0.1-1.0); Blood Urea Nitrogen 13 mg/dL (8-24); Bun/Creatinine Ratio 15.8 (12.0-20.0); CO2, Blood 29 mmol/L (21-32); Calcium, Blood 9.2 mg/dL (8.5-10.1); Chloride, Blood 109 mmol/L (98-108); Creatinine, Blood 0.82 mg/dL (0.40-1.00); Ethanol (Alcohol), Blood, Med <3 mg/dL; Globulin, Blood 3.4 g/dL (2.2-4.0); Glomerular Filtration Rate >60 (60-); Glucose, Blood 97 mg/dL (70-99); Potassium, Blood 3.6 mmol/L (3.5-5.5); Prolactin 12.3 ng/mL (2.74-19.64); Salicylate 4.3 mg/dL (2.8-20.0); Sodium, Blood 142 mmol/L (136-145); Total Protein, Blood 7.1 g/dL (6.4-8.2)
[2021-05-31 21:52] LABS: Acetaminophen, Random <2.0 ug/mL (10.0-30.0)
[2021-05-31 22:19] LABS: Source, Urine Clean Catch
[2021-05-31 22:21] LABS: Bilirubin, Urine Neg (Neg); Blood, Urine 2+ (Neg); Glucose Qualitative, Urine Neg (Neg); Ketones, Urine Neg (Neg); Leukocyte Esterase, Urine Neg (Neg); Nitrite, Urine Neg (Neg); Protein, Urine 1+ (Neg); Urobilinogen, Urine NORM (Normal); pH, Urine 6.5 (5.0-8.0)
[2021-05-31 22:30] LABS: Influenza A, PCR NEGATIVE (NEGATIVE); Influenza B, PCR NEGATIVE (NEGATIVE); Resp Syncytial Virus, PCR NEGATIVE (NEGATIVE); SARS-Cov-2 (COVID-19) PCR, MMC NEGATIVE (NEGATIVE)
[2021-05-31 22:36] LABS: Appearance, Urine Clear (Clear); Color, Urine Yellow (P-Yellow)
[2021-05-31 22:38] LABS: Bacteria Few /hpf; Squamous Epithelial Cells Few /hpf (Few); White Blood Cells, Urine 0-2 /hpf (0-5)
[2021-05-31 23:02] LABS: U Amphetamine Screen Not Detected; U Barbituate Screen Not Detected; U Benzodiazapine Screen DETECTED; U Buprenorphine Screen Not Detected; U Cannabinoids Screen Not Detected; U Cocaine Screen Not Detected; U Methadone Screen Not Detected; U Methamphetamine Screen Not Detected; U Opiates Screen DETECTED; U Oxycodone Screen Not Detected; U Phencyclidine Screen Not Detected; U Propoxyphene Screen Not Detected
[2021-05-31] MEDS ORDERED: INSULIN GL100 UNIT/2 SC (23:14)
[2021-05-31] MEDS ORDERED: PREGABALIN50 MG PO (23:14)
[2021-05-31] MEDS ORDERED: ANORO ELLIPTA1 EAC1 INH (23:14)
[2021-05-31] MEDS ORDERED: TRAM50 PO (23:14)
[2021-05-31] MEDS ORDERED: ALPR1 PO (23:15)
[2021-05-31] MEDS ORDERED: PANTOPRAZOLE SO40 M2 PO (23:15)
[2021-05-31] MEDS ORDERED: NEURONTIN300 MG PO (23:15)
[2021-05-31] MEDS ORDERED: OMEP20ER PO (23:16)
[2021-05-31] MEDS ORDERED: PRAVASTATIN SOD20 MG PO (23:16)
[2021-05-31] MEDS ORDERED: DULOXETINE HCL60 M1 PO (23:22)
[2021-05-31] MEDS ORDERED: PRAZOSIN HCL1 M2 PO (23:23)
[2021-05-31] MEDS ORDERED: IPRATROPIUM BRO30 ML NS (23:23)
[2021-06-01 00:37] LABS: Free Thyroxine 1.39 ng/dL (0.70-1.60); Magnesium, Blood 1.9 mg/dL (1.6-2.4); Thyroid Stimulating Hormone 0.514 uIU/mL (0.360-4.800)
[2021-06-01 05:57] LABS: BASOPHILS ABSOLUTE AUTO 0.03 K/mm3 (0.00-0.23); BASOPHILS PERCENT AUTO 0 % (0-2); EOSINOPHILS ABSOLUTE AUTO 0.13 K/mm3 (0.00-0.68); EOSINOPHILS PERCENT AUTO 2 % (0-6); Hematocrit 41.2 % (33.0-51.0); Hemoglobin 13.5 g/dL (11.5-16.0); IMMATURE GRAN ABSOLUTE AUTO 0.01 K/mm3 (0.00-0.10); IMMATURE GRAN PERCENT AUTO 0 % (0-1); LYMPHOCYTES ABSOLUTE AUTO 2.53 K/mm3 (0.84-5.20); LYMPHOCYTES PERCENT AUTO 28 % (21-46); MONOCYTES ABSOLUTE AUTO 0.66 K/mm3 (0.16-1.47); MONOCYTES PERCENT AUTO 7 % (4-13); Mean Corpuscular HGB Conc 32.8 g/dL (31.5-36.5); Mean Corpuscular Volume 79 fL (80-100); Mean Platelet Volume 10.2 fL (9.1-12.4); NEUTROPHILS ABSOLUTE AUTO 5.58 K/mm3 (1.96-9.15); NEUTROPHILS PERCENT AUTO 62 % (41-73); Platelet Count 170 K/mm3 (150-400); RDW Coefficient Variation 14.8 % (11.7-14.2); RDW Standard Deviation 42.7 fL (35.1-46.3); Red Blood Cell Count 5.19 M/mm3 (3.80-5.20); White Blood Cell Count 8.94 K/mm3 (4.00-11.30)
[2021-06-01 06:16] LABS: Alanine Aminotransfer (ALT/SGP 15 U/L (12-78); Albumin, Blood 3.5 g/dL (3.4-5.0); Albumin/Globulin Ratio 1.1 (0.8-1.8); Alk Phos 66 U/L (50-136); Anion Gap 4 mmol/L (6-16); Aspartate Aminotrans (AST/SGOT 10 U/L (12-37); Bilirubin, Total 0.6 mg/dL (0.1-1.0); Blood Urea Nitrogen 12 mg/dL (8-24); Bun/Creatinine Ratio 19.7 (12.0-20.0); CO2, Blood 28 mmol/L (21-32); Calcium, Blood 8.9 mg/dL (8.5-10.1); Chloride, Blood 110 mmol/L (98-108); Creatinine, Blood 0.61 mg/dL (0.40-1.00); Globulin, Blood 3.3 g/dL (2.2-4.0); Glomerular Filtration Rate >60 (60-); Glucose, Blood 89 mg/dL (70-99); Potassium, Blood 3.6 mmol/L (3.5-5.5); Sodium, Blood 142 mmol/L (136-145); Total Protein, Blood 6.8 g/dL (6.4-8.2)
--- NOTE | 2021-06-01 16:29 | NUR ---
DAY SHIFT SUMMARY 65 YR OLD FEMALE ADMITTED FOR SEIZURES. STATES SHE WAS TAKEN OFF HER GABAPENTIN AND PUT ON CELEXA OR LYRICA INSTEAD, SHE DID NOT LIKE THE WAY IT MADE HER FEEL SO SHE TOOK HERSELF OFF BY JUST STOPPING THE MED, AT THE SAME TIME SHE STARTED THE LYRICA OR CELEXA SHE ALSO STARTED TRAMADOL. THIS IS HER FIRST SEIZURE AND SHE BELIEVES TAKING THE NEW MEDS CAUSED THIS EVENT. EDUCATED PT ON ABRUPT STOPS OF MEDICATIONS. PT ADMISSION COMPLETED. PT ORIENTED TO ROOM/SURROUNDINGS/CALL LIGHT. CALL LIGHT WITHIN REACH OF PT AND ABLE TO CALL APPROPRIATELY. PT C/O OF HEADACHE AT TIME OF ADMIT, MEDICATED PER EMAR. STATES PT TO BE DISCHARGED TONIGHT.
--- NOTE | 2021-06-01 18:19 | NUR ---
DISCHARGE SUMMARY IV AND TELE REMOVED PRIOR TO DISCHARGE. DISCHARGED HOME, DISCHARGE EDUCATION REVIEWED WITH AND SIGNED BY PT. TRANSPORTED TO [facility] FOR RIDE VIA WHEELCHAIR ALONG WITH PERSONAL BELONGINGS. MEDS FAXED TO [facility].
[2021-10-19] MEDS ORDERED: CLON1 PO (14:34)
[2021-10-19] MEDS ORDERED: Prinivil10 MG PO (14:35)
[2021-10-19] MEDS ORDERED: NITR.4SL SL (14:35)
[2021-10-19] MEDS ORDERED: FISH OIL 1,2001 EAC4 PO (14:36)
[2021-10-19] MEDS ORDERED: NOVOLOG FL100 UNIT/3 SC (14:36)
[2021-10-19] MEDS ORDERED: Aspir 8181 MG PO (14:36)
[2021-10-19] MEDS ORDERED: MULVITA PO (14:37)
[2021-10-19] MEDS ORDERED: ALBU90OI INH (18:21)
[2021-10-20] MEDS ORDERED: TIZA4 PO (00:33)
== END 2021-06-01 18:41 | disposition home or self-care (01) ==
LOC: ER 20:35 → ERHOLD 20:36 → MEDS 06-01 14:08
PROVIDERS: Emergency Medicine; ADMIT Internal Medicine
DX: R56.9 Unspecified convulsions (principal); R09.02 Hypoxemia; G89.29 Other chronic pain; M79.7 Fibromyalgia; G47.30 Sleep apnea, unspecified; I10 Essential (primary) hypertension; E78.5 Hyperlipidemia, unspecified; E11.40 Type 2 diabetes mellitus with diabetic neuropathy, unspecified; I25.10 Atherosclerotic heart disease of native coronary artery without angina pectoris; I25.2 Old myocardial infarction; E66.9 Obesity, unspecified; F17.210 Nicotine dependence, cigarettes, uncomplicated; Z86.73 Personal history of transient ischemic attack (TIA), and cerebral infarction without residual deficits; Z79.4 Long term (current) use of insulin; Z79.82 Long term (current) use of aspirin; Z68.41 Body mass index [BMI] 40.0-44.9, adult; Z20.822 Contact with and (suspected) exposure to COVID-19
CPT/HCPCS: 0241U; 36415; 70450; 70496; 70498; 71045; 73030; 80053; 81001; 82947; 83735; 84146; 84439; 84443; 85025; 93005; 93010; 95819; 96365; 96366; 99285-25; A9270; G0378; G0480; J1815; J1953; Q9967

== ENCOUNTER 2021-09-07 13:02 | Emergency (ER) | payer OTHER ==
[~2021-09-07] VITALS: Ht 157.5 cm; Wt 111.1 kg
[~2021-09-07 13:02] MED LIST changes: +ANORO ELLIPTA1 EAC1 INH; +DULOXETINE HCL60 M1 PO; +INSULIN GL100 UNIT/2 SC; +IPRATROPIUM BRO30 ML NS; +OMEP20ER PO; +PANTOPRAZOLE SO40 M2 PO; +PRAVASTATIN SOD20 MG PO; +PRAZOSIN HCL1 M2 PO; +PREGABALIN50 MG PO; +TRAM50 PO
[2021-09-07 14:02] LABS: BASOPHILS ABSOLUTE AUTO 0.04 K/mm3 (0.00-0.23); BASOPHILS PERCENT AUTO 0 % (0-2); EOSINOPHILS ABSOLUTE AUTO 0.11 K/mm3 (0.00-0.68); EOSINOPHILS PERCENT AUTO 1 % (0-6); Hematocrit 41.3 % (33.0-51.0); Hemoglobin 13.5 g/dL (11.5-16.0); IMMATURE GRAN ABSOLUTE AUTO 0.04 K/mm3 (0.00-0.10); IMMATURE GRAN PERCENT AUTO 0 % (0-1); LYMPHOCYTES ABSOLUTE AUTO 2.31 K/mm3 (0.84-5.20); LYMPHOCYTES PERCENT AUTO 21 % (21-46); MONOCYTES ABSOLUTE AUTO 0.53 K/mm3 (0.16-1.47); MONOCYTES PERCENT AUTO 5 % (4-13); Mean Corpuscular HGB 26.3 pg (26.0-34.0); Mean Corpuscular HGB Conc 32.7 g/dL (31.5-36.5); Mean Corpuscular Volume 80 fL (80-100); Mean Platelet Volume 11.4 fL (9.1-12.4); NEUTROPHILS ABSOLUTE AUTO 8.04 K/mm3 (1.96-9.15); NEUTROPHILS PERCENT AUTO 73 % (41-73); Platelet Count 180 K/mm3 (150-400); RDW Coefficient Variation 14.6 % (11.7-14.2); RDW Standard Deviation 42.7 fL (35.1-46.3); Red Blood Cell Count 5.14 M/mm3 (3.80-5.20); White Blood Cell Count 11.07 K/mm3 (4.00-11.30)
[2021-09-07 14:19] LABS: Albumin, Blood 3.8 g/dL (3.4-5.0); Albumin/Globulin Ratio 1.3 (0.8-1.8); Bilirubin, Total 0.4 mg/dL (0.1-1.0); Bun/Creatinine Ratio 19.2 (12.0-20.0); Calcium, Blood 9.3 mg/dL (8.5-10.1); Creatinine, Blood 0.63 mg/dL (0.40-1.00); Globulin, Blood 2.9 g/dL (2.2-4.0); Potassium, Blood 4.3 mmol/L (3.5-5.5); Total Protein, Blood 6.7 g/dL (6.4-8.2)
[2021-10-19] MEDS ORDERED: CLON1 PO (14:34)
[2021-10-19] MEDS ORDERED: NITR.4SL SL (14:35)
[2021-10-19] MEDS ORDERED: Prinivil10 MG PO (14:35)
[2021-10-19] MEDS ORDERED: Aspir 8181 MG PO (14:36)
[2021-10-19] MEDS ORDERED: FISH OIL 1,2001 EAC4 PO (14:36)
[2021-10-19] MEDS ORDERED: NOVOLOG FL100 UNIT/3 SC (14:36)
[2021-10-19] MEDS ORDERED: MULVITA PO (14:37)
[2021-10-19] MEDS ORDERED: ALBU90OI INH (18:21)
[2021-10-20] MEDS ORDERED: TIZA4 PO (00:33)
== END 2021-09-07 17:53 | disposition home or self-care (01) ==
LOC: ER 13:02
PROVIDERS: Family Medicine
DX: J44.1 Chronic obstructive pulmonary disease with (acute) exacerbation (principal); I25.2 Old myocardial infarction; I10 Essential (primary) hypertension; E11.9 Type 2 diabetes mellitus without complications; F17.210 Nicotine dependence, cigarettes, uncomplicated; Z79.4 Long term (current) use of insulin; Z79.899 Other long term (current) drug therapy
CPT/HCPCS: 71045; 80053; 83880; 84484; 85025; 93005; 93010; 94644; 94664; 99285-25

== ENCOUNTER → 2021-09-09 | Outpatient (CLI) | payer OTHER ==
[~2021-09-09] MED LIST changes: +CLON1 PO; +FISH OIL 1,2001 EAC4 PO; +MULVITA PO; +NOVOLOG FL100 UNIT/3 SC; +Prinivil10 MG PO; +TIZA4 PO
[2021-09-09 19:04] LABS: BASOPHILS ABSOLUTE AUTO 0.05 K/mm3 (0.00-0.23); BASOPHILS PERCENT AUTO 1 % (0-2); EOSINOPHILS ABSOLUTE AUTO 0.15 K/mm3 (0.00-0.68); EOSINOPHILS PERCENT AUTO 2 % (0-6); Hematocrit 38.6 % (33.0-51.0); Hemoglobin 12.8 g/dL (11.5-16.0); IMMATURE GRAN ABSOLUTE AUTO 0.02 K/mm3 (0.00-0.10); IMMATURE GRAN PERCENT AUTO 0 % (0-1); LYMPHOCYTES PERCENT AUTO 36 % (21-46); MONOCYTES ABSOLUTE AUTO 0.72 K/mm3 (0.16-1.47); MONOCYTES PERCENT AUTO 7 % (4-13); Mean Corpuscular HGB 26.6 pg (26.0-34.0); Mean Corpuscular HGB Conc 33.2 g/dL (31.5-36.5); Mean Corpuscular Volume 80 fL (80-100); Mean Platelet Volume 11.4 fL (9.1-12.4); NEUTROPHILS ABSOLUTE AUTO 5.63 K/mm3 (1.96-9.15); NEUTROPHILS PERCENT AUTO 55 % (41-73); Platelet Count 183 K/mm3 (150-400); RDW Standard Deviation 43.2 fL (35.1-46.3); Red Blood Cell Count 4.82 M/mm3 (3.80-5.20); White Blood Cell Count 10.27 K/mm3 (4.00-11.30)
[2021-09-09 19:07] LABS: Bun/Creatinine Ratio 23.8 (12.0-20.0); Calcium, Blood 9.1 mg/dL (8.5-10.1); Creatinine, Blood 0.84 mg/dL (0.40-1.00); Potassium, Blood 4.2 mmol/L (3.5-5.5)
== END | disposition home or self-care (01) ==
LOC: LAB 18:57 → LAB SHORT 18:57
PROVIDERS: Physician Assistant Surgical
DX: N39.0 Urinary tract infection, site not specified (principal); R42 Dizziness and giddiness
CPT/HCPCS: 80048; 84484; 85025; 87077; 87086; 87186

== ENCOUNTER 2022-05-30 15:06 | Emergency (ER) | payer OTHER ==
[~2022-05-30] VITALS: Ht 157.5 cm; Wt 117.9 kg
[2022-05-30] MEDS ORDERED: Percocet 5-3251 EACH PO (17:11)
== END 2022-05-30 17:46 | disposition home or self-care (01) ==
LOC: ER 15:06
DX: M25.551 Pain in right hip (principal); E11.9 Type 2 diabetes mellitus without complications; I25.10 Atherosclerotic heart disease of native coronary artery without angina pectoris; F17.210 Nicotine dependence, cigarettes, uncomplicated; X58.XXXA Exposure to other specified factors, initial encounter; Z88.5 Allergy status to narcotic agent; Z88.8 Allergy status to other drugs, medicaments and biological substances; Z91.09 Other allergy status, other than to drugs and biological substances; Z79.899 Other long term (current) drug therapy
CPT/HCPCS: 73502; 96372; 99283-25; J1885

== ENCOUNTER 2022-06-11 21:23 | Emergency (ER) | payer MEDICARE, OTHER ==
[~2022-06-11] VITALS: Ht 157.5 cm; Wt 113.4 kg
[2022-06-11 21:59] VITALS: BP 150/66
[2022-06-11 22:20] LABS: BASOPHILS ABSOLUTE AUTO 0.04 K/mm3 (0.00-0.23); BASOPHILS PERCENT AUTO 0 % (0-2); EOSINOPHILS ABSOLUTE AUTO 0.17 K/mm3 (0.00-0.68); EOSINOPHILS PERCENT AUTO 1 % (0-6); Hemoglobin 12.7 g/dL (11.5-16.0); IMMATURE GRAN ABSOLUTE AUTO 0.04 K/mm3 (0.00-0.10); IMMATURE GRAN PERCENT AUTO 0 % (0-1); LYMPHOCYTES ABSOLUTE AUTO 2.76 K/mm3 (0.84-5.20); LYMPHOCYTES PERCENT AUTO 22 % (21-46); MONOCYTES ABSOLUTE AUTO 0.69 K/mm3 (0.16-1.47); MONOCYTES PERCENT AUTO 6 % (4-13); Mean Corpuscular HGB 26.1 pg (26.0-34.0); Mean Corpuscular HGB Conc 32.6 g/dL (31.5-36.5); Mean Corpuscular Volume 80 fL (80-100); Mean Platelet Volume 10.9 fL (9.1-12.4); NEUTROPHILS ABSOLUTE AUTO 8.81 K/mm3 (1.96-9.15); NEUTROPHILS PERCENT AUTO 70 % (41-73); Platelet Count 198 K/mm3 (150-400); RDW Standard Deviation 40.7 fL (35.1-46.3); Red Blood Cell Count 4.86 M/mm3 (3.80-5.20); White Blood Cell Count 12.51 K/mm3 (4.00-11.30)
[2022-06-11 22:40] LABS: Albumin, Blood 3.8 g/dL (3.4-5.0); Albumin/Globulin Ratio 1.1 (0.8-1.8); Bilirubin, Total 0.4 mg/dL (0.1-1.0); Creatinine, Blood 0.7 mg/dL (0.40-1.00); Globulin, Blood 3.5 g/dL (2.2-4.0); Potassium, Blood 4.2 mmol/L (3.5-5.5); Total Protein, Blood 7.3 g/dL (6.4-8.2)
[2022-06-12 00:34] LABS: Source, Urine Clean Catch
[2022-06-12 00:38] LABS: Bilirubin, Urine Neg (Neg); Blood, Urine Neg (Neg); Glucose Qualitative, Urine Neg (Neg); Ketones, Urine Neg (Neg); Leukocyte Esterase, Urine Neg (Neg); Nitrite, Urine Neg (Neg); Protein, Urine 1+ (Neg); Urobilinogen, Urine NORM (Normal); pH, Urine 6.5 (5.0-8.0)
[2022-06-12 00:57] LABS: Appearance, Urine Clear (Clear); Color, Urine Yellow (P-Yellow)
[2022-06-12] MEDS ORDERED: MIRALAX17 GM PO (01:32)
[2022-06-12] MEDS ORDERED: SENN187 PO (01:32)
== END 2022-06-12 01:50 | disposition home or self-care (01) ==
LOC: ER 21:23
PROVIDERS: Student in an Organized Health Care Education/Training Program
DX: K59.00 Constipation, unspecified (principal); E11.9 Type 2 diabetes mellitus without complications; M79.7 Fibromyalgia; G40.909 Epilepsy, unspecified, not intractable, without status epilepticus; I25.10 Atherosclerotic heart disease of native coronary artery without angina pectoris; I48.91 Unspecified atrial fibrillation; G47.33 Obstructive sleep apnea (adult) (pediatric); F17.210 Nicotine dependence, cigarettes, uncomplicated; Z88.5 Allergy status to narcotic agent; Z91.048 Other nonmedicinal substance allergy status; Z88.8 Allergy status to other drugs, medicaments and biological substances; Z79.899 Other long term (current) drug therapy; Z79.82 Long term (current) use of aspirin; Z79.4 Long term (current) use of insulin
CPT/HCPCS: 74177; 80053; 83690; 85025; 93005; 93010; 96361; 96374-59; 96375; 99284-25; J1885; J2405; J3010; J7030; Q9967

== ENCOUNTER 2022-07-14 14:37 | Emergency (ER) | payer MEDICARE, OTHER ==
[~2022-07-14] VITALS: Ht 157.5 cm; Wt 117.9 kg
[~2022-07-14 14:37] MED LIST changes: -BISA5EC PO; -MAGCIT300 PO
[2022-07-14 16:46] VITALS: BP 161/79
[2022-07-14 16:54] LABS: Source, Urine Clean Catch
[2022-07-14 17:09] LABS: Appearance, Urine Clear (Clear); Bilirubin, Urine Neg (Neg); Blood, Urine 1+ (Neg); Color, Urine Yellow (P-Yellow); Glucose Qualitative, Urine Neg (Neg); Ketones, Urine Neg (Neg); Leukocyte Esterase, Urine Neg (Neg); Nitrite, Urine Neg (Neg); Protein, Urine 1+ (Neg); Specific Gravity, Urine 1.005 (1.003-1.022); Urobilinogen, Urine NORM (Normal)
[2022-07-14 17:26] LABS: Bacteria Rare /hpf; Squamous Epithelial Cells Few /hpf (Few); White Blood Cells, Urine 0-2 /hpf (0-5)
[2022-07-14] MEDS ORDERED: BISA5EC PO (17:31)
[2022-07-14] MEDS ORDERED: MAGCIT300 PO (17:31)
== END 2022-07-14 18:05 | disposition home or self-care (01) ==
LOC: ER 14:37
PROVIDERS: Student in an Organized Health Care Education/Training Program
DX: K59.00 Constipation, unspecified (principal); F17.210 Nicotine dependence, cigarettes, uncomplicated; Z88.8 Allergy status to other drugs, medicaments and biological substances; Z91.048 Other nonmedicinal substance allergy status; Z88.5 Allergy status to narcotic agent; Z79.899 Other long term (current) drug therapy; Z79.4 Long term (current) use of insulin; I10 Essential (primary) hypertension; I25.2 Old myocardial infarction; E78.00 Pure hypercholesterolemia, unspecified; E11.9 Type 2 diabetes mellitus without complications; I25.10 Atherosclerotic heart disease of native coronary artery without angina pectoris
CPT/HCPCS: 74177; 81001; 93005; 93010; 99284-25; A9270; Q9967

== ENCOUNTER → 2022-07-14 | Outpatient (CLI) | payer MEDICARE, OTHER ==
[~2022-07-14] MED LIST changes: +BISA5EC PO; +MAGCIT300 PO; +MIRALAX17 GM PO; +SENN187 PO
[2022-07-14 13:42] LABS: BASOPHILS ABSOLUTE AUTO 0.05 K/mm3 (0.00-0.23); BASOPHILS PERCENT AUTO 0 % (0-2); EOSINOPHILS ABSOLUTE AUTO 0.13 K/mm3 (0.00-0.68); EOSINOPHILS PERCENT AUTO 1 % (0-6); Hematocrit 38.3 % (33.0-51.0); Hemoglobin 12.8 g/dL (11.5-16.0); IMMATURE GRAN ABSOLUTE AUTO 0.07 K/mm3 (0.00-0.10); IMMATURE GRAN PERCENT AUTO 1 % (0-1); LYMPHOCYTES ABSOLUTE AUTO 2.08 K/mm3 (0.84-5.20); LYMPHOCYTES PERCENT AUTO 14 % (21-46); MONOCYTES ABSOLUTE AUTO 0.83 K/mm3 (0.16-1.47); MONOCYTES PERCENT AUTO 6 % (4-13); Mean Corpuscular HGB 26.2 pg (26.0-34.0); Mean Corpuscular HGB Conc 33.4 g/dL (31.5-36.5); Mean Corpuscular Volume 79 fL (80-100); Mean Platelet Volume 11.4 fL (9.1-12.4); NEUTROPHILS ABSOLUTE AUTO 11.58 K/mm3 (1.96-9.15); NEUTROPHILS PERCENT AUTO 79 % (41-73); Platelet Count 201 K/mm3 (150-400); RDW Coefficient Variation 14.3 % (11.7-14.2); RDW Standard Deviation 40.2 fL (35.1-46.3); Red Blood Cell Count 4.88 M/mm3 (3.80-5.20); White Blood Cell Count 14.74 K/mm3 (4.00-11.30)
[2022-07-14 13:53] LABS: Albumin, Blood 3.7 g/dL (3.4-5.0); Albumin/Globulin Ratio 1.2 (0.8-1.8); Bilirubin, Total 0.3 mg/dL (0.1-1.0); Bun/Creatinine Ratio 18.2 (12.0-20.0); Calcium, Blood 8.7 mg/dL (8.5-10.1); Creatinine, Blood 0.77 mg/dL (0.40-1.00); Globulin, Blood 3.2 g/dL (2.2-4.0); Potassium, Blood 3.9 mmol/L (3.5-5.5); Total Protein, Blood 6.9 g/dL (6.4-8.2)
== END ==
LOC: LAB 13:37 → LAB SHORT 13:37
PROVIDERS: Chiropractor
DX: R11.2 Nausea with vomiting, unspecified (principal)
CPT/HCPCS: 80053; 83690; 84484; 85025

== ENCOUNTER 2022-09-23 15:48 | Emergency (ER) | payer OTHER ==
[~2022-09-23] VITALS: Ht 157.5 cm; Wt 111.1 kg
[~2022-09-23 15:48] MED LIST changes: +BISA5EC PO; +MAGCIT300 PO
[2022-09-23 16:39] LABS: BASOPHILS ABSOLUTE AUTO 0.03 K/mm3 (0.00-0.23); BASOPHILS PERCENT AUTO 0 % (0-2); EOSINOPHILS ABSOLUTE AUTO 0.14 K/mm3 (0.00-0.68); EOSINOPHILS PERCENT AUTO 2 % (0-6); Hematocrit 40.5 % (33.0-51.0); Hemoglobin 13.9 g/dL (11.5-16.0); IMMATURE GRAN ABSOLUTE AUTO 0.01 K/mm3 (0.00-0.10); IMMATURE GRAN PERCENT AUTO 0 % (0-1); LYMPHOCYTES ABSOLUTE AUTO 2.69 K/mm3 (0.84-5.20); LYMPHOCYTES PERCENT AUTO 35 % (21-46); MONOCYTES ABSOLUTE AUTO 0.48 K/mm3 (0.16-1.47); MONOCYTES PERCENT AUTO 6 % (4-13); Mean Corpuscular HGB 27.1 pg (26.0-34.0); Mean Corpuscular HGB Conc 34.3 g/dL (31.5-36.5); Mean Corpuscular Volume 79 fL (80-100); Mean Platelet Volume 11.6 fL (9.1-12.4); NEUTROPHILS PERCENT AUTO 56 % (41-73); Platelet Count 209 K/mm3 (150-400); RDW Coefficient Variation 15.3 % (11.7-14.2); RDW Standard Deviation 43.9 fL (35.1-46.3); Red Blood Cell Count 5.12 M/mm3 (3.80-5.20); White Blood Cell Count 7.65 K/mm3 (4.00-11.30)
[2022-09-23 16:58] LABS: Albumin, Blood 3.8 g/dL (3.4-5.0); Albumin/Globulin Ratio 1.2 (0.8-1.8); Bilirubin, Total 0.3 mg/dL (0.1-1.0); Bun/Creatinine Ratio 18.1 (12.0-20.0); Calcium, Blood 9.3 mg/dL (8.5-10.1); Creatinine, Blood 0.72 mg/dL (0.40-1.00); Globulin, Blood 3.3 g/dL (2.2-4.0); Total Protein, Blood 7.1 g/dL (6.4-8.2)
[2022-09-23] MEDS ORDERED: AMLODIPINE BESY10 MG PO (18:08)
[2022-09-23 19:00] VITALS: BP 122/66
== END 2022-09-23 21:33 | disposition home or self-care (01) ==
LOC: ER 15:48
PROVIDERS: Physician Assistant
DX: R10.32 Left lower quadrant pain (principal); Z88.5 Allergy status to narcotic agent; Z88.8 Allergy status to other drugs, medicaments and biological substances; Z79.82 Long term (current) use of aspirin; Z79.51 Long term (current) use of inhaled steroids; Z79.4 Long term (current) use of insulin; Z79.899 Other long term (current) drug therapy; E11.9 Type 2 diabetes mellitus without complications; I48.91 Unspecified atrial fibrillation; Z79.01 Long term (current) use of anticoagulants; Z87.442 Personal history of urinary calculi; G47.33 Obstructive sleep apnea (adult) (pediatric); G40.909 Epilepsy, unspecified, not intractable, without status epilepticus; F17.210 Nicotine dependence, cigarettes, uncomplicated; Z90.710 Acquired absence of both cervix and uterus; Z91.048 Other nonmedicinal substance allergy status
CPT/HCPCS: 74177; 80053; 84484; 85025; 93005; 93010; 99284-25; J7030; Q9967

== ENCOUNTER 2023-01-20 17:38 | Emergency (ER) | payer OTHER ==
[~2023-01-20] VITALS: Ht 157.5 cm; Wt 108.9 kg
[~2023-01-20 17:38] MED LIST changes: +AMLODIPINE BESY10 MG PO
[2023-01-20 18:34] LABS: BASOPHILS ABSOLUTE AUTO 0.03 K/mm3 (0.00-0.23); BASOPHILS PERCENT AUTO 0 % (0-2); EOSINOPHILS ABSOLUTE AUTO 0.09 K/mm3 (0.00-0.68); EOSINOPHILS PERCENT AUTO 1 % (0-6); Hematocrit 41.6 % (33.0-51.0); Hemoglobin 13.7 g/dL (11.5-16.0); IMMATURE GRAN ABSOLUTE AUTO 0.02 K/mm3 (0.00-0.10); IMMATURE GRAN PERCENT AUTO 0 % (0-1); LYMPHOCYTES ABSOLUTE AUTO 2.14 K/mm3 (0.84-5.20); LYMPHOCYTES PERCENT AUTO 22 % (21-46); MONOCYTES ABSOLUTE AUTO 0.59 K/mm3 (0.16-1.47); MONOCYTES PERCENT AUTO 6 % (4-13); Mean Corpuscular HGB 26.7 pg (26.0-34.0); Mean Corpuscular HGB Conc 32.9 g/dL (31.5-36.5); Mean Corpuscular Volume 81 fL (80-100); Mean Platelet Volume 11.1 fL (9.1-12.4); NEUTROPHILS ABSOLUTE AUTO 6.78 K/mm3 (1.96-9.15); NEUTROPHILS PERCENT AUTO 70 % (41-73); Platelet Count 204 K/mm3 (150-400); RDW Coefficient Variation 14.1 % (11.7-14.2); RDW Standard Deviation 40.9 fL (35.1-46.3); Red Blood Cell Count 5.14 M/mm3 (3.80-5.20); White Blood Cell Count 9.65 K/mm3 (4.00-11.30)
[2023-01-20 19:22] LABS: Albumin, Blood 3.5 g/dL (3.4-5.0); Bilirubin, Total 0.3 mg/dL (0.1-1.0); Bun/Creatinine Ratio 14.8 (12.0-20.0); Calcium, Blood 9.2 mg/dL (8.5-10.1); Creatinine, Blood 0.74 mg/dL (0.40-1.00); Globulin, Blood 3.6 g/dL (2.2-4.0); Potassium, Blood 3.4 mmol/L (3.5-5.5); Total Protein, Blood 7.1 g/dL (6.4-8.2)
[2023-01-20 21:33] VITALS: BP 140/84
== END 2023-01-20 21:41 | disposition home or self-care (01) ==
LOC: ER 17:38
PROVIDERS: Student in an Organized Health Care Education/Training Program
DX: R07.89 Other chest pain (principal); Z88.5 Allergy status to narcotic agent; Z91.048 Other nonmedicinal substance allergy status; Z88.8 Allergy status to other drugs, medicaments and biological substances; Z79.899 Other long term (current) drug therapy; Z79.82 Long term (current) use of aspirin; Z79.4 Long term (current) use of insulin; E11.9 Type 2 diabetes mellitus without complications; G40.909 Epilepsy, unspecified, not intractable, without status epilepticus; I25.10 Atherosclerotic heart disease of native coronary artery without angina pectoris; I48.91 Unspecified atrial fibrillation; F17.210 Nicotine dependence, cigarettes, uncomplicated
CPT/HCPCS: 71046; 80053; 83880; 84484; 85025; 93005; 93010; 96374; 96375; 99285-25; J1885; J2405

== ENCOUNTER 2023-12-19 07:13 | Day surgery (SDC) | payer OTHER ==
[~2023-12-19] VITALS: Ht 157.5 cm; Wt 103.0 kg
[~2023-12-19 07:13] MED LIST changes: +ANORO ELLIPTA1 EAC1 IH; +IBUP400; +MELO7.5; +METO10; +NS 500 ML IV SCH; +OZEMPIC2 MG/0.75 SQ; +PRAVASTATIN SOD40 MG PO
[2023-12-19 07:43] VITALS: BP 128/73
--- NOTE | 2023-12-19 07:54 | NUR ---
Ambulatory in Day Surgery WITH STEADY GAIT. History, Chart, Medications and Allergies reviewed before start of procedure. Patient States Post-Procedure ride home has been arranged WITH [facility]. Patient confirms NPO status and agrees with scheduled surgery.
[2023-12-19] MEDS ORDERED: Benzocaine Oral Spray 0.5ML UD ONE (08:09)
[2023-12-19] MEDS ORDERED: propofoL 40 ML IV ONE (08:12)
--- NOTE | 2023-12-19 08:13 | NUR ---
12/19/23 0813 Linsey Goodman MONITOR INTACT WITH CONTINUOUS PULSE OXIMETRY, CONTINUOUS END TITAL CO2, AND INTERMITTENT BLOOD PRESSURE.
[2023-12-19 08:30] VITALS: BP 132/72
--- NOTE | 2023-12-19 08:47 | NUR ---
Discharge instructions reviewed with patient. Patient verbalizes understanding. Copy given to patient to take home. Patient States Post-Procedure ride home has been arranged. Discharged via wheelchair to private car for ride home.
== END 2023-12-19 08:50 | disposition home or self-care (01) ==
LOC: ORSCMMR 07:13 → ORD 08:00 → ORSCMMR 08:50
PROVIDERS: Internal Medicine Gastroenterology
PROC: 0DB48ZX Excision of Esophagogastric Junction, Via Natural or Artificial Opening Endoscopic, Diagnostic (ICD-10-PCS; principal; 2023-12-19 08:00)
PROC: 0DB98ZX Excision of Duodenum, Via Natural or Artificial Opening Endoscopic, Diagnostic (ICD-10-PCS; principal; 2023-12-19 08:00)
PROC: 0DB68ZX Excision of Stomach, Via Natural or Artificial Opening Endoscopic, Diagnostic (ICD-10-PCS; principal; 2023-12-19 08:00)
DX: R10.13 Epigastric pain (principal); K21.00 Gastro-esophageal reflux disease with esophagitis, without bleeding; R11.0 Nausea; R13.10 Dysphagia, unspecified; K29.70 Gastritis, unspecified, without bleeding; Z79.899 Other long term (current) drug therapy; Z86.73 Personal history of transient ischemic attack (TIA), and cerebral infarction without residual deficits; E11.9 Type 2 diabetes mellitus without complications; I10 Essential (primary) hypertension; F32.A Depression, unspecified; F41.9 Anxiety disorder, unspecified; G47.33 Obstructive sleep apnea (adult) (pediatric); E66.01 Morbid (severe) obesity due to excess calories; Z68.41 Body mass index [BMI] 40.0-44.9, adult; Z79.4 Long term (current) use of insulin; Z79.82 Long term (current) use of aspirin; Z79.85 Long-term (current) use of injectable non-insulin antidiabetic drugs
CPT/HCPCS: 82947; 88305; 88342; A9270; J2704; J7040

== ENCOUNTER 2024-01-02 08:49 | Day surgery (SDC) | payer OTHER ==
[~2024-01-02] VITALS: Ht 160 cm; Wt 104.3 kg
[~2024-01-02 08:49] MED LIST changes: +CeFAZolin Sodium 2,000 MG VIAL ONE; +Lactated Ringer's 1,000 ML IV ONE; -METO10; +METO10 PO; +NS 0 ML IV ONE; -NS 500 ML IV SCH
[2024-01-02] MEDS ORDERED: FentaNYL Citrate 50 MCG/ML 2 ML Injection ONE (08:53)
[2024-01-02] MEDS ORDERED: Bupivacaine 0.5% HCl 5 MG/ML 30MLVIAL ONE (08:53)
[2024-01-02] MEDS ORDERED: propofoL 20 ML IV ONE (08:53)
[2024-01-02] MEDS ORDERED: Tranexamic Acid 100 ML IV ONE (08:55)
[2024-01-02] MEDS ORDERED: Midazolam HCl 1MG / ML 2ML Vial ONE (09:01)
[2024-01-02] MEDS ORDERED: Lactated Ringer's 1,000 ML IV ONE (09:05)
[2024-01-02] MEDS ORDERED: NOVOLOG FL100 UNIT/3 (09:11)
[2024-01-02] MEDS ORDERED: PROP10 PO (09:11)
[2024-01-02] MEDS ORDERED: CYCL10 PO (09:12)
[2024-01-02] MEDS ORDERED: ESCI20 PO (09:12)
[2024-01-02] MEDS ORDERED: AMLO10 PO (09:12)
[2024-01-02] MEDS ORDERED: ONDA4ODT MM (09:13)
[2024-01-02] MEDS ORDERED: HYDHCL25 PO (09:13)
[2024-01-02] MEDS ORDERED: CeFAZolin Sodium 2,000 MG VIAL ONE (09:35)
[2024-01-02] MEDS ORDERED: NS 50 ML IV ONE (09:36)
--- NOTE | 2024-01-02 10:04 | NUR ---
01/02/24 1004 AD CLEARY PT IN PRE OP - READY FOR OR. ANTICIPATING BLOCK TO R SHOULDER TIMEOUT 0945 BLOCK START 1000 BLOCK END 2116
[2024-01-02] MEDS ORDERED: Lidocaine 1%-Epineph 1:100000 20 ML MDV INJ ONE (10:30)
[2024-01-02] MEDS ORDERED: Dexamethasone Sod Phos 10 MG/ML 1ML VIAL ONE (10:35)
[2024-01-02] MEDS ORDERED: Ondansetron HCl 2 MG / ML 2ML Vial ONE (10:35)
[2024-01-02] MEDS ORDERED: Rocuronium Bromide 10 MG/ML 5ML Injection IV ONE (10:44)
[2024-01-02] MEDS ORDERED: Phenylephrine HCl 100 MCG/ML-NS 10MLSYR (1MG/10ML) ONE (10:57)
[2024-01-02] MEDS ORDERED: Glycopyrrolate 0.2 MG/ML 5ML VIAL ONE (10:58)
--- NOTE | 2024-01-02 11:18 | NUR ---
01/02/24 1118 Caro Tejada NOTED PTS SKIN BELOW ARMPIT IS REDDENED, DR DANIELS AWARE, OK TO PROCEED
[2024-01-02] MEDS ORDERED: Sugammadex Sodium 200 MG/2ML SDV (100 MG/ML) ONE (11:40)
[2024-01-02] MEDS ORDERED: Albuterol 2.5 MG/3 ML VIAL ONE (12:25)
--- NOTE | 2024-01-02 12:49 | NUR ---
01/02/24 1249 Olga Chavez ADMINISTERED ALBUTEROL NEB TX APPROX 1230. LUNGS /C SOME EXPIRITORY WHEEZES PRIOR TO TX. PT'S LUNGS CTA AFTER TX /C SLIGHTLY DIMINISHED IN LOWER RIGHT LOBE.
[2024-01-02 13:45] VITALS: BP 160/74
== END 2024-01-02 13:44 | disposition home or self-care (01) ==
LOC: ORSCSDS 08:49
PROVIDERS: Orthopaedic Surgery Sports Medicine
PROC: 0LM14ZZ Reattachment of Right Shoulder Tendon, Percutaneous Endoscopic Approach (ICD-10-PCS; principal; 2024-01-02 10:30)
PROC: 0RNJ4ZZ Release Right Shoulder Joint, Percutaneous Endoscopic Approach (ICD-10-PCS; principal; 2024-01-02 10:30)
DX: M75.121 Complete rotator cuff tear or rupture of right shoulder, not specified as traumatic (principal); M19.011 Primary osteoarthritis, right shoulder; M67.813 Other specified disorders of tendon, right shoulder; M75.51 Bursitis of right shoulder; I10 Essential (primary) hypertension; E11.9 Type 2 diabetes mellitus without complications; Z86.73 Personal history of transient ischemic attack (TIA), and cerebral infarction without residual deficits; I25.10 Atherosclerotic heart disease of native coronary artery without angina pectoris; G47.33 Obstructive sleep apnea (adult) (pediatric); J44.9 Chronic obstructive pulmonary disease, unspecified; Z79.4 Long term (current) use of insulin; Z79.899 Other long term (current) drug therapy; I25.2 Old myocardial infarction; F17.210 Nicotine dependence, cigarettes, uncomplicated; E66.01 Morbid (severe) obesity due to excess calories; Z68.41 Body mass index [BMI] 40.0-44.9, adult
CPT/HCPCS: 82947; C1713; J0690; J1100; J2250; J2371; J2405; J2704; J3010; J7120

== ENCOUNTER → 2024-09-11 | Outpatient (CLI) | payer OTHER ==
[~2024-09-11] MED LIST changes: +AMLO10 PO; -CeFAZolin Sodium 2,000 MG VIAL ONE; +ESCI20 PO; +HYDHCL25 PO; -Lactated Ringer's 1,000 ML IV ONE; +NOVOLOG FL100 UNIT/3; -NS 0 ML IV ONE; +ONDA4ODT MM; +PROP10 PO
== END | disposition home or self-care (01) ==
LOC: LAB 10:50 → LAB SHORT 10:50
DX: M79.662 Pain in left lower leg (principal)
CPT/HCPCS: 85379

== ENCOUNTER → 2024-11-07 | Outpatient (CLI) | payer OTHER | LOC: LAB SHORT 18:18 → LAB 18:18 | DX: N39.0 Urinary tract infection, site not specified (principal) | CPT/HCPCS: 87077; 87086; 87186 ==